=== PATIENT | female | born 2005 | race African-American/Black ===

== ENCOUNTER 2025-07-30 19:43 | Emergency (ER) | payer MEDICAID ==
[~2025-07-30] VITALS: Ht 165.1 cm; Wt 96.6 kg
[2025-07-30 19:54] VITALS: O2SAT 100
[2025-07-30 20:20] LABS: BASOPHILS % 0.6 % (0.0-2.0); EOSINOPHILS % 1.0 % (0.0-5.0); HEMATOCRIT. 37.6 % (36.0-48.0); HEMOGLOBIN. 12.4 g/dL (12.0-16.0); LYMPHOCYTES % 31.7 % (20.0-50.0); MEAN PLATELET VOLUME 9.0 fl (7.4-10.4); MONOCYTES % 8.6 % (2.0-8.0); NEUTROPHILS % 58.1 % (40.0-76.0); PLATELET 274 x1000/uL (130-400); RED BLOOD CELL COUNT 4.80 mill/uL (4.2-5.4); RED CELL DISTRIBUTION WIDTH 16.0 % (11.6-14.6)
[2025-07-30 20:37] LABS: CREATININE 0.6 mg/dL (0.6-1.0)
[2025-07-30 20:38] LABS: UREA NITROGEN BLOOD < 5 mg/dL (9-23)
[2025-07-30 20:39] LABS: ASPARTATE AMINOTRANSFERASE 16 IU/L (<34)
[2025-07-30 20:40] LABS: BILIRUBIN DIRECT 0.3 mg/dL (<=3.0); BILIRUBIN TOTAL 0.9 mg/dL (0.1-1.0); PROTEIN TOTAL 7.7 g/dL (6.0-8.3)
[2025-07-30 20:46] LABS: GLUCOSE URINE NEGATIVE (NEGATIVE); KETONES URINE 4+ (NEGATIVE); LEUKOCYTE ESTERASE URINE NEGATIVE (NEGATIVE); NITRITE URINE NEGATIVE (NEGATIVE); OCCULT BLOOD URINE NEGATIVE (NEGATIVE); PH URINE 5.5 (4.5-8.0); PROTEIN URINE 2+ (NEGATIVE); SPECIFIC GRAVITY URINE 1.039 (1.005-1.030); UROBILINOGEN URINE 1.0 E.U./dL (0.2-1.0)
[2025-07-30] MEDS: FAMOTIDINE 20MG/2ML VIAL IV ONE (20:50)
[2025-07-30] MEDS: PYRIDOXINE 100 MG/ML 1ML IV ONE (20:52)
[2025-07-30] MEDS: SODIUM CHLORIDE 0.9% 1,000 ML IV ONE (20:53)
[2025-07-30] MEDS: MAGNESIUM/ALUMINUM HYDROXIDE/SIMETHICONE 30ML UDC PO ONE (20:58)
[2025-07-30] MEDS: ONDANSETRON HCL 4MG/2ML INJ IV ONE (20:58)
[2025-07-30 21:28] LABS: CLARITY URINE HAZY (CLEAR); COLOR URINE YELLOW (YELLOW)
[2025-07-30 21:33] LABS: RBC URINE NONE SEEN /hpf (0-2); WBC URINE 0-2 /hpf (0-2)
[2025-07-30 21:34] LABS: SQUAMOUS EPITHELIAL CELL URINE 2+ /lpf (RARE/1+)
[2025-07-30 21:36] LABS: BACTERIA URINE TRACE
[2025-07-30] MEDS ORDERED: ONDA-239 PO (22:40)
[2025-07-30] MEDS ORDERED: FAMO-135 MT (22:44)
[2025-07-30 22:50] VITALS: BP 112/75; PULSE 86; RESP 15; TEMP 36.7; O2SAT 99
== END 2025-07-30 23:00 | disposition home or self-care (01) ==
LOC: ER 19:43
DX: O21.1 Hyperemesis gravidarum with metabolic disturbance (principal); O99.612 Diseases of the digestive system complicating pregnancy, second trimester; Z3A.14 14 weeks gestation of pregnancy; Z79.899 Other long term (current) drug therapy
CPT/HCPCS: 36415; 76805; 80048; 80076; 81003; 81025; 84702; 85025; 93005; 96361; 96374; 96375; 99285; J1308; J2405; J3415; J7030